=== PATIENT | female | born 1990 | race American Indian/Alaskan Native ===

== ENCOUNTER 2020-09-04 13:04 | Emergency (ER) | payer MEDICAID ==
[2020-09-04 13:24] VITALS: BP 125/61
--- NOTE | 2020-09-04 14:03 | Event Note ---
ED Screening Note ED Screening Note: lmp 02/02 18 weeks preg ob sent her here for migraine headache has had migraines and cordova w and wo preg has had for days saw pcp in office today no focal def ambulatory [facility]h concussion 2014 had stroke w last preg rx none no cig/etoh/drugs ob [facility] no cp no sob bp n in triage This initial assessment/diagnostic orders/clinical plan/treatment(s) is/are subject to change based on patients health status, clinical progression and re- assessment by fellow clinical providers in the ED. Further treatment and workup at subsequent clinical providers discretion. Patient/guardian urged not to elope from the ED as their condition may be serious if not clinically assessed and managed. Initial orders include: labs urinalysis monitor bp
[2020-09-04 14:45] LABS: Hematocrit 34.8 % (30.3-42.9); Hemoglobin 11.7 gm/dl (10.1-14.3); Mean Corpuscular HGB Conc 34 % (30-34); Mean Corpuscular Volume 93 fl (79-97); Platelet Count 213 K/mm3 (140-440); Red Blood Count 3.76 M/mm3 (3.65-5.03); Red Cell Distribution Width 13.3 % (13.2-15.2)
[2020-09-04 15:08] LABS: Alanine Aminotransferase 19 units/L (7-56); Albumin 3.9 g/dL (3.9-5); Blood Urea Nitrogen 6 mg/dL (7-17); Calcium 8.5 mg/dL (8.4-10.2); Hemolysis Index 3
[2020-09-04 15:10] LABS: BUN/Creatinine Ratio 12
[2020-09-04 15:38] LABS: Bilirubin,Urine NEG (Negative); Blood,Urine NEG (Negative); Calcium Oxalate Crystals,Urine 2+; Color,Urine Yellow (Yellow); Hyaline Casts,Urine 2 /LPF; Mucus,Urine 3+ /HPF
[2020-09-04] MEDS ORDERED: ACETAMINOPHEN 325 MG TAB PO ONE (20:42)
[2020-09-04] MEDS ORDERED: METOCLOPRAMIDE 10 MG/2 ML INJ IV ONE (20:42)
[2020-09-04] MEDS ORDERED: diphenhydrAMINE 50 MG/ML VIAL IV ONE (20:42)
[2020-09-04] MEDS ORDERED: SODIUM CHLORIDE 0.9% 1000 ML 1,000 ML IV ONE (20:43)
--- NOTE | 2020-09-04 21:44 | Emergency Department Report ---
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 Patient is currently 18 weeks and was sent by her NEUROSURGEON doctor for evaluation. Patient has a global headache that is also occipital and described as a constant pressure and hear head feels heavy with lifting her head. Patient does have light sensitivity but denies blurred vision or focal weakness.. She denies nausea, vomiting, fever, focal numbnless. Good po. intake but did not have much to eat today due to doctor's visits. Patient apparently had a "stroke" during her 2014 in which she had right sided facial weakness involving the forehead and blurred vision. Visual changes lasted x1 day but facial weakness was persistent for about 1 year before resolving. Patient has been prescribed Tylenol 3 for her headaches in the past but is not currently taking any medication for pain since symptoms onset several days ago. Patient states that this headache today is similar to her previous episodes that she was concerned that she might have another stroke due to persistent pain Allergies/Adverse Reactions: Allergies morphine Allergy (Verified 09/04/20 13:18) Swelling Home Medications: Ambulatory Orders Vit-Fe Fumar-FA [ Vitamin] 1 each PO QDAY #30 tablet 12/04/13 Ibuprofen [Motrin 600 MG tab] 600 mg PO Q6HR #30 tablet 04/06/15 Acetaminophen [Acetaminophen TAB] 1,000 mg PO Q6HR PRN #20 tablet 09/04/20 Acetaminophen/Codeine [Tylenol /Codeine # 3 tab] 1 tab PO Q6H PRN #10 tab 09/04/20 Metoclopramide [Reglan] 10 mg PO TID PRN #20 tab 09/04/20 ED Review of Systems ROS: Stated complaint: HEADACHE;BLURRY VISION Other details as noted in HPI Comment: All other systems reviewed and negative ED Past Medical Hx - Past Medical History Hx Hypertension: No Hx Congestive Heart Failure: No Hx Diabetes: No Hx Deep Vein Thrombosis: No Hx Renal Disease: No Hx Sickle Cell Disease: No Hx Seizures: No Hx Asthma: No Hx COPD: No Hx HIV: No - Surgical History Additional Surgical History: hand surgery s/p staph infection - Social History Smoking Status: Never Smoker - Medications Home Medications: Home Medications Medication Instructions Recorded Confirmed Last Taken Type Vit-Fe Fumar-FA [ 1 each PO QDAY #30 tablet 12/04/13 04/05/15 04/04/15 08:15 Rx Vitamin] 1 Ibuprofen [Motrin 600 MG tab] 600 mg PO Q6HR #30 tablet 04/06/15 Unknown Rx Acetaminophen [Acetaminophen TAB] 1,000 mg PO Q6HR PRN #20 tablet 09/04/20 Unknown Rx Acetaminophen/Codeine [Tylenol 1 tab PO Q6H PRN #10 tab 09/04/20 Unknown Rx /Codeine # 3 tab] Metoclopramide [Reglan] 10 mg PO TID PRN #20 tab 09/04/20 Unknown Rx ED Physical Exam - General Limitations: No Limitations - Other Other exam information: General: No acute distress Head: Atraumatic Eyes: normal appearance, extraocular movements intact, pupils equal reactive to light ENT: Moist mucous membranes Neck: Normal appearance, no midline tenderness, no nuchal rigidity Chest: Clear to auscultation bilaterally CV: Regular rate and rhythm Abdomen: Soft, normal bowel sounds, nontender, nondistended, no rebound or guarding Back: Normal inspection Extremity: Normal inspection, full range of motion Neuro: Alert O x 3, no facial asymmetry, speech clear, no gross motor sensory deficit, [id number] function intact Psych: Appropriate behavior Skin: No rash ED Course Vital Signs 09/04/20 09/04/20 13:22 20:55 Temperature 98.5 F Pulse Rate 95 H Respiratory 18 18 Rate Blood Pressure 125/61 O2 Sat by Pulse 97 Oximetry - Reevaluation(s) Reevaluation #1: 09/04/20 22:30 Headache now 3/10 after receiving Reglan, Benadryl, Tylenol, and 500 mL of normal saline 09/04/20 22:44 I informed patient that her CAT scan results are good normal however, they do not 100% rule out a subarachnoid bleed given that her symptoms have been ongoing for several days. I explained to her that the only way to rule out a subarachnoid bleed is to perform a lumbar puncture. Patient insists that this headache is similar to her previous headache episodes and she feels improvement with ED treatment and does not want a lumbar puncture at this time. Patient also lacks high risk findings of subarachnoid hemorrhage as indicated by the Mcdowell subarachnoid rules for headache evaluation. ED Medical Decision Making - Lab Data Result diagrams: 09/04/20 14:26 09/04/20 14:26 Lab Results 09/04/20 09/04/20 09/04/20 Range/Units 14:26 14:26 14:53 WBC 10.1 (4.5-11.0) K/mm3 RBC 3.76 (3.65-5.03) M/mm3 Hgb 11.7 (10.1-14.3) gm/dl Hct 34.8 (30.3-42.9) % MCV 93 (79-97) fl MCH 31 (28-32) pg MCHC 34 (30-34) % RDW 13.3 (13.2-15.2) % Plt Count 213 (140-440) K/mm3 Sodium 134 L (137-145) mmol/L Potassium 3.5 L (3.6-5.0) mmol/L Chloride 101.7 (98-107) mmol/L Carbon Dioxide 22 (22-30) mmol/L Anion Gap 14 mmol/L BUN 6 L (7-17) mg/dL Creatinine 0.5 L (0.6-1.2) mg/dL Estimated GFR > 60 ml/min BUN/Creatinine Ratio 12 % Glucose 127 H (65-100) mg/dL Calcium 8.5 (8.4-10.2) mg/dL Total Bilirubin 0.20 (0.1-1.2) mg/dL AST 19 (5-40) units/L ALT 19 (7-56) units/L Alkaline Phosphatase 52 (35-129) units/L Total Protein 6.8 (6.3-8.2) g/dL Albumin 3.9 (3.9-5) g/dL Albumin/Globulin Ratio 1.3 % Urine Color Yellow (Yellow) Urine Turbidity Cloudy (Clear) Urine pH 5.0 (5.0-7.0) Ur Specific [place] 1.023 (1.003-1.030) Urine Protein 30 mg/dl (Negative) mg/dL Urine Glucose (UA) Neg (Negative) mg/dL Urine Ketones 20 (Negative) mg/dL Urine Blood Neg (Negative) Urine Nitrite Neg (Negative) Urine Bilirubin Neg (Negative) Urine Urobilinogen 2.0 (<2.0) mg/dL Ur Leukocyte Esterase Sm (Negative) Urine WBC (Auto) 6.0 (0.0-6.0) /HPF Urine RBC (Auto) 4.0 (0.0-6.0) /HPF U Epithel Cells (Auto) 26.0 H (0-13.0) /HPF Calcium Oxalate Crystal 2+ Hyaline Casts 2 /LPF Urine Mucus 3+ /HPF - Radiology Data Radiology results: report reviewed (ct head: naf) - Medical Decision Making 30-year-old female presents to the hospital complaining of "migraine" headache related to . Reports similar headaches in the past with previous pregnancies. CT head unremarkable with with no high risk findings as per Mcdowell subarachnoid hemorrhage rules. Patient declined LP and shows improvement with migraine treatment including Reglan, Benadryl, Tylenol, and normal saline. Patient also received 1 dose of p.o. potassium for mild hypokalemia. Patient will be discharged home on Tylenol plus Reglan as first-line with Tylenol with codeine for refractory pain. Patient instructed to return if symptoms worsen as indicated by discharge instructions Critical Care Time: No Critical care attestation.: If time is entered above; I have spent that time in minutes in the direct care of this critically ill patient, excluding procedure time. ED Disposition Clinical Impression: , Migraine Disposition: DC-01 TO HOME OR SELFCARE Is pt being admited?: No Does the pt Need Aspirin: No Condition: Stable Instructions: Migraine Headache, Second Trimester of Additional Instructions: As informed we are unable to 100% rule out subarachnoid hemorrhage or a bleeding aneurysm without lumbar puncture testing which you have declined today. A missed subarachnoid hemorrhage can lead to significant risk of disability and . Is very important that you return to the ED for reevaluation if your headache worsens or you have new neurologic symptoms. Take the medication as prescribed. Take Tylenol and Reglan first-line for headache. If headache persists you may take Tylenol with codeine however, this dose needs to be taken 6 hours after last Tylenol 1000 mg dose. You can only take 4000 mg of Tylenol/acetaminophen in a 24-hour so use caution while taking both the Tylenol and Tylenol with Codeine as prescribed. Follow-up with your doctor or doctor/clinic provided. Return if symptoms worsen as indicated by your discharge instructions. Prescriptions: Acetaminophen [Acetaminophen TAB] 1,000 mg PO Q6HR PRN #20 tablet PRN Reason: Headache Metoclopramide [Reglan] 10 mg PO TID PRN #20 tab PRN Reason: Headache Acetaminophen/Codeine [Tylenol /Codeine # 3 tab] 1 tab PO Q6H PRN #10 tab PRN Reason: Headache Referrals: JAIRO WINTERS MD [Primary Care Provider] - 3-5 Days TANISHA DORSEY MD [Staff Physician] - 3-5 Days (Neurologist) Time of Disposition: 23:36
--- NOTE | 2020-09-04 22:08 | Cat Scan Report ---
NONENHANCED CT SCAN OF THE HEAD: INDICATION / CLINICAL INFORMATION: 30 years Female; Patient complains of a headache, 18wks . TECHNIQUE: Routine CT head without contrast. All CT scans at this location are performed using CT dos e reduction for ALARA by means of automated exposure control. COMPARISON: None. FINDINGS: BRAIN / INTRACRANIAL CONTENTS: No acute hemorrhage, mass effect, midline shift, hydrocephalus, or acu te, large territorial infarct. No chronic infarct or focal atrophy. Normal brain volume and ventricul ar/sulcal size for age. No significant white matter abnormality. CRANIOCERVICAL JUNCTION: No significant abnormality. ORBITS: No significant abnormality of visualized orbits. SINUSES / MASTOIDS: No significant abnormality of the visualized paranasal sinuses or mastoid air paul ls. ADDITIONAL FINDINGS: None. IMPRESSION: No focal mass, hemorrhage, hydrocephalus, or acute, large territorial infarct. Signer Name: Jarrell Block MD Signed: 09/04/2020 10:03 PM Workstation Name: [id number]
[2020-09-04] MEDS ORDERED: POTASSIUM CHLORIDE ER 20 MEQ TAB PO ONE (23:24)
== END 2020-09-04 23:57 | disposition home or self-care (01) ==
LOC: ED 13:04
DX: O26.892 Other specified pregnancy related conditions, second trimester (principal); G43.909 Migraine, unspecified, not intractable, without status migrainosus; Z79.899 Other long term (current) drug therapy; Z88.6 Allergy status to analgesic agent; Z3A.18 18 weeks gestation of pregnancy
CPT/HCPCS: 36415; 70450; 80053; 81001; 85027; 96361; 96374; 96375; 99284; J1200; J2765; J7030

== ENCOUNTER 2020-11-16 22:16 | Outpatient (CLI) | payer MEDICAID ==
[2020-11-16] MEDS ORDERED: LACTATED RINGERS 1,000 ML IV SCH (22:30)
[2020-11-16 22:57] LABS: Bacteria,Urine 1+ /HPF (Negative); Bilirubin,Urine NEG (Negative); Blood,Urine NEG (Negative); Color,Urine Yellow (Yellow); Mucus,Urine 2+ /HPF
[2020-11-16] MEDS ORDERED: TERBUTALINE 1 MG/1 ML INJ SUB-Q SCH (23:00)
[2020-11-16 23:20] VITALS: BP 117/67
[2020-11-16] MEDS ORDERED: LIDOCAINE-MPF (1%) 10 MG/1 ML VIAL 5 ML INFILTRATI ONE (23:38)
== END 2020-11-17 00:30 | disposition home or self-care (01) ==
LOC: TRG 22:16 → APU 22:17 → TRG 11-17 00:30
PROVIDERS: ATTEND Obstetrics & Gynecology
DX: O26.893 Other specified pregnancy related conditions, third trimester (principal); M54.9 Dorsalgia, unspecified; Z3A.28 28 weeks gestation of pregnancy
CPT/HCPCS: 36415; 59025; 81001; 82731; 87086; 96372; J0696

== ENCOUNTER 2021-01-22 13:28 | Outpatient (CLI) | payer MEDICAID ==
[2021-01-22 14:24] VITALS: BP 101/58
== END 2021-01-22 14:50 | disposition home or self-care (01) ==
LOC: TRG 13:28 → APU 13:29 → TRG 14:50
PROVIDERS: ATTEND Obstetrics & Gynecology
DX: O47.1 False labor at or after 37 completed weeks of gestation (principal); Z3A.38 38 weeks gestation of pregnancy
CPT/HCPCS: 59025

== ENCOUNTER 2021-01-31 12:37 | Inpatient (IN) | payer MEDICAID ==
[2021-01-31] MEDS ORDERED: METHYLERGONOVINE MALEATE 0.2 MG/ML VIAL IM PRN (14:12)
[2021-01-31] MEDS ORDERED: OXYTOCIN 10 UNIT/1 ML INJ IM PRN (14:12)
[2021-01-31] MEDS ORDERED: CARBOPROST TROMETHAMINE 250 MCG/1 ML INJ IM PRN (14:12)
[2021-01-31] MEDS ORDERED: miSOPROStol 200 MCG TAB PR PRN (14:12)
[2021-01-31] MEDS ORDERED: LIDOCAINE (2%) 20 MG/1 ML VIAL 20 ML MDV INFILTRATI ONE (14:12)
[2021-01-31] MEDS ORDERED: MINERAL OIL 30 ML ORAL LIQD PO PRN (14:12)
[2021-01-31] MEDS ORDERED: LOPERAMIDE 2 MG CAP PO PRN (14:12)
[2021-01-31] MEDS ORDERED: AMPICILLIN/NS 2 GM/100 ML 2 GM/100 ML BAG IV ONE ×3 (14:12→19:00)
[2021-01-31] MEDS ORDERED: ePHEDrine SULFATE 50 MG/1 ML INJ IV PRN ×2 (14:12→18:32)
[2021-01-31] MEDS ORDERED: TERBUTALINE 1 MG/1 ML INJ SUB-Q PRN (14:12)
--- NOTE | 2021-01-31 14:18 | History and Physical Report ---
History of Present Illness Date of examination: 01/31/21 Date of admission: 01/31/2021 Chief complaint: Leaking of water from vagina History of present illness: 30 year old female presents with complaint of leaking of clear fluid from vagina since approximately 12:00 today. Patient received care at [facility] and records are available. LMP 02/09/2020. EDC 02/05/2021. 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 labs are as follows: O+, antibody screen negative, rubella immune, RPR nonreactive, HIV negative, hepatitis B surface antigen negative, gonorrhea negative, chlamydia negative, trichomonas negative, AFP negative, 1 hour sugar test 96, GBS positive. Past History Past Medical History: other (obesity, history of depression, migraine headaches, history of head injury, history of bells palsy vs. stroke 2014) Past Surgical History: no surgical history [facility] History: denies: chlamydia, gonorrhea, hepatitis B, hepatitis C, herpes, HIV, syphilis, trichomonas Family/Genetic History: diabetes, hypertension, stroke, cancer, other (asthma) Social history: lives with family - Obstetrical History Expected Date of Delivery: 02/05/21 Actual Gestation: 39 Week(s) 2 Day(s) : 3 Para: 2 Hx # Term Pregnancies: 1 Number of Pregnancies: 1 Spontaneous Abortions: 0 Induced : 0 Number of Living Children: 2 Medications and Allergies Allergies Allergy/AdvReac Type Severity Reaction Status Date / Time morphine Allergy Swelling Verified 09/04/20 13:18 Home Medications Medication Instructions Recorded Confirmed Last Taken Type Vit-Fe Fumar-FA [ 1 each PO QDAY #30 tablet 12/04/13 04/05/15 04/04/15 08:15 Rx Vitamin] 1 Ibuprofen [Motrin 600 MG tab] 600 mg PO Q6HR #30 tablet 04/06/15 Unknown Rx Acetaminophen [Acetaminophen TAB] 1,000 mg PO Q6HR PRN #20 tablet 09/04/20 Unknown Rx Acetaminophen/Codeine [Tylenol 1 tab PO Q6H PRN #10 tab 09/04/20 Unknown Rx /Codeine # 3 tab] Metoclopramide [Reglan] 10 mg PO TID PRN #20 tab 09/04/20 Unknown Rx Active Meds: Active Medications Carboprost Tromethamine (Carboprost Tromethamine 250 Mcg/1 Ml Inj) 250 mcg IM ONCE PRN PRN Reason: Uterine Bleeding Ephedrine Sulfate (Ephedrine Sulfate 50 Mg/1 Ml Inj) 10 mg IV Q2M PRN PRN Reason: Hypotension Oxytocin/Sodium Chloride (Pitocin/Ns 30 Unit/500ml) 30 units in 500 mls @ 2 mls/hr IV TITR GERTRUDE; Protocol Lactated Ringer's (Lactated Ringers) 1,000 mls @ 125 mls/hr IV DIRECT GERTRUDE Oxytocin/Sodium Chloride (Pitocin/Ns 30 Unit/500ml) 30 units in 500 mls @ 40 mls/hr IV TITR GERTRUDE; Protocol Ampicillin Sodium (Ampicillin/Ns 2 Gm/100 Ml) 2 gm in 100 mls @ 100 mls/hr IV ONCE ONE; Protocol Stop: 01/31/21 15:11 Ampicillin Sodium (Ampicillin/Ns 1 Gm/50 Ml) 1 gm in 50 mls @ 100 mls/hr IV Q4H GERTRUDE; Protocol Lidocaine (Lidocaine (2%) 20 Mg/1 Ml Vial 20 Ml Mdv) 20 ml INFILTRATI ONCE ONE Stop: 01/31/21 14:13 Loperamide HCl (Loperamide 2 Mg Cap) 2 mg PO ONCE PRN PRN Reason: give with Hemabate Methylergonovine Maleate (Methylergonovine Maleate 0.2 Mg/Ml Vial) 0.2 mg IM ONCE PRN PRN Reason: Uterine Bleeding Mineral Oil (Mineral Oil 30 Ml Oral Liqd) 30 ml PO QHS PRN PRN Reason: Constipation Misoprostol (Misoprostol 200 Mcg Tab) 800 mcg SC ONCE PRN PRN Reason: Uterine Bleeding Oxytocin (Oxytocin 10 Unit/1 Ml Inj) 10 unit IM ONCE PRN PRN Reason: Uterine Bleeding Terbutaline Sulfate (Terbutaline 1 Mg/1 Ml Inj) 0.25 mg SUB-Q ONCE PRN PRN Reason: Hyperstimulation/Hypertonicity Review of Systems All systems: negative (leaking of clear fluid from vagina) - Vital Signs Vital signs: Vital Signs Pulse Pulse Ox 84 98 01/31/21 13:12 01/31/21 13:12 Temp Pulse Resp BP Pulse Ox 97.6 F 76 20 129/80 98 01/31/21 13:19 01/31/21 14:14 01/31/21 13:19 01/31/21 13:19 01/31/21 14:14 - Physical Exam Abdomen: Positive: normal appearance, soft. Negative: distention, tenderness, guarding, rigidity Genitourinary (Female): Positive: normal external genitalia, normal perenium. Negative: perineal/vulvar lesions Vagina: Positive: other (small amount of watery fluid) Uterus: Positive: enlarged. Negative: tender Anus/Rectum: Positive: normal perianal skin Extremities: Positive: normal - Obstetrical FHR: category 1 Uterine Contraction Monitor Mode: External Cervical Dilatation: 1 (Exam by RN upon arrival) Cervical Effacement Percentage: 50 station: -3 Uterine Contraction Pattern: Irregular Uterine Contraction Intensity: Mild Results Abnormal lab results 01/31/21 Range/Units Unknown Membranes Rupture Positive A (Negative) All other labs normal. Assessment and Plan A: at 39 2/7 weeks gestation. Spontaneous rupture of membranes (PROM). GBS positive. Rectovaginal fistula. Obesity. P: Admit. Continuous EFM. GBS prophylaxis. Augmentation of labor.
[2021-01-31] MEDS ORDERED: OXYTOCIN DRIP 30 UNITS/500 ML BAG IV SCH ×2 (15:00)
[2021-01-31 15:02] LABS: Hematocrit 36.5 % (30.3-42.9); Hemoglobin 12.3 gm/dl (10.1-14.3); Mean Corpuscular HGB Conc 34 % (30-34); Mean Corpuscular Volume 90 fl (79-97); Platelet Count 241 K/mm3 (140-440); Red Blood Count 4.06 M/mm3 (3.65-5.03); Red Cell Distribution Width 14.1 % (13.2-15.2)
--- NOTE | 2021-01-31 15:38 | Ultrasound Report ---
ULTRASOUND OBSTETRIC LIMITED INDICATION / CLINICAL INFORMATION: presentation. Clinical Gestational Age (GA): 39.4 weeks.days COMPARISON: None available. FINDINGS: HEART RATE (beats per minute): 153 PRESENTATION: Cephalic. ADDITIONAL FINDINGS: None. IMPRESSION: 1. Single living intrauterine gestation in cephalic position. Signer Name: Elder Sorenson MD Signed: 01/31/2021 3:33 PM Workstation Name: [id number]
[2021-01-31] MEDS: LACTATED RINGERS 1,000 ML IV SCH (16:59)
[2021-01-31] MEDS ORDERED: NALOXONE 2 MG/2 ML INJ IV PRN (18:32)
--- NOTE | 2021-01-31 18:34 | Anesthesia Day of Surgery ---
Anesthesia Day of Surgery - Day of Surgery Patient Examined: Yes Patient H&P Reviewed: Yes Patient is NPO: Yes
--- NOTE | 2021-01-31 18:36 | Anesthesia Consultation ---
Anesthesia Consult and Med Hx Date of service: 01/31/21 - Airway Anesthetic Teeth Evaluation: Good ROM Head & Neck: Adequate Mental/Hyoid Distance: Adequate Mallampati Class: Class II Intubation Access Assessment: Good - Pre-Operative Health Status ASA Pre-Surgery Classification: ASA2 Proposed Anesthetic Plan: Epidural - Pulmonary Hx Asthma: No COPD: No Hx Pneumonia: No - Cardiovascular System Hx Hypertension: Yes (In 2014) - Central Nervous System Hx Seizures: No Hx Psychiatric Problems: No - Endocrine Hx Renal Disease: No Hx End Stage Renal Disease: No Hx Hypothyroidism: No Hx Hyperthyroidism: No - Hematic Hx Anemia: No Hx Sickle Cell Disease: No - Other Systems Hx Alcohol Use: No - Additional Comments Anesthesia Medical History Comments: Had a prior epidural-didn't work too well
--- NOTE | 2021-01-31 19:08 | Event Note ---
Date: 01/31/21 SVE 3.5/80/-4.
[2021-01-31] MEDS: fentaNYL-BUPIV 2 MCG/ML-0.125% 200 MCG/100 ML BAG EPIDURAL SCH (19:55)
[2021-01-31] MEDS: AMPICILLIN/NS 1 GM/50 ML 1 GM/50 ML BAG IV SCH ×2 (23:10→23:20)
[2021-02-01] MEDS ORDERED: diphenhydrAMINE 50 MG/ML VIAL IV ONE (00:57)
[2021-02-01] MEDS: AMPICILLIN/NS 1 GM/50 ML 1 GM/50 ML BAG IV SCH ×2 (03:29→07:36)
[2021-02-01] MEDS: fentaNYL-BUPIV 2 MCG/ML-0.125% 200 MCG/100 ML BAG EPIDURAL SCH (05:29)
--- NOTE | 2021-02-01 05:45 | Event Note ---
Date: 02/01/21 SVE /-1.
[2021-02-01] MEDS ORDERED: LIDOCAINE (2%) 20 MG/1 ML VIAL 20 ML MDV INFILTRATI ONE (07:24)
[2021-02-01] MEDS: LACTATED RINGERS 1,000 ML IV SCH (07:28)
--- NOTE | 2021-02-01 07:41 | Event Note ---
Date: 02/01/[address] Benedict; care of patient being turned over to Dr. Benedict at 08:00.
--- NOTE | 2021-02-01 07:54 | Progress Note ---
Subjective - Subjective Date of service: 02/01/21 Interval history: no cervical change plan for oxytocin per protocol repair of repair of RV fistuala Category 1 tracing Mary Benedict MD Objective - Vital Signs Vital Signs: Vital Signs - 12hr 01/31/21 01/31/21 01/31/21 19:54 19:59 20:04 Temperature Pulse Rate 68 77 65 Respiratory Rate Blood Pressure O2 Sat by Pulse 98 99 98 Oximetry 01/31/21 01/31/21 01/31/21 20:08 20:09 20:14 Temperature 97.9 F Pulse Rate 74 67 Respiratory 20 Rate Blood Pressure 117/58 O2 Sat by Pulse 98 99 100 Oximetry 01/31/21 01/31/21 01/31/21 20:19 20:24 20:29 Temperature Pulse Rate 69 72 68 Respiratory Rate Blood Pressure O2 Sat by Pulse 99 99 99 Oximetry 01/31/21 01/31/21 01/31/21 20:34 20:39 20:40 Temperature Pulse Rate 70 68 73 Respiratory Rate Blood Pressure 113/56 O2 Sat by Pulse 99 99 Oximetry 01/31/21 01/31/21 01/31/21 20:44 20:49 20:54 Temperature Pulse Rate 65 82 68 Respiratory Rate Blood Pressure O2 Sat by Pulse 99 99 99 Oximetry 01/31/21 01/31/21 01/31/21 20:59 21:04 21:09 Temperature Pulse Rate 85 65 74 Respiratory Rate Blood Pressure O2 Sat by Pulse 98 99 99 Oximetry 01/31/21 01/31/21 01/31/21 21:10 21:14 21:19 Temperature Pulse Rate 76 69 80 Respiratory Rate Blood Pressure 111/55 O2 Sat by Pulse 99 99 Oximetry 01/31/21 01/31/21 01/31/21 21:24 21:29 21:34 Temperature Pulse Rate 70 71 72 Respiratory Rate Blood Pressure O2 Sat by Pulse 98 99 100 Oximetry 01/31/21 01/31/21 01/31/21 21:39 21:44 21:49 Temperature Pulse Rate 69 72 70 Respiratory Rate Blood Pressure 118/66 O2 Sat by Pulse 100 100 100 Oximetry 01/31/21 01/31/21 01/31/21 21:54 21:59 22:04 Temperature Pulse Rate 74 71 72 Respiratory Rate Blood Pressure O2 Sat by Pulse 100 100 100 Oximetry 01/31/21 01/31/21 01/31/21 22:09 22:14 22:19 Temperature Pulse Rate 65 69 66 Respiratory Rate Blood Pressure 126/56 O2 Sat by Pulse 100 100 100 Oximetry 01/31/21 01/31/21 01/31/21 22:24 22:29 22:34 Temperature Pulse Rate 68 74 76 Respiratory Rate Blood Pressure O2 Sat by Pulse 100 99 99 Oximetry 01/31/21 01/31/21 01/31/21 22:39 22:44 22:49 Temperature Pulse Rate 69 93 H 67 Respiratory Rate Blood Pressure 118/66 O2 Sat by Pulse 99 99 99 Oximetry 01/31/21 01/31/21 01/31/21 22:54 22:59 23:04 Temperature Pulse Rate 93 H 67 86 Respiratory Rate Blood Pressure O2 Sat by Pulse 99 99 100 Oximetry 01/31/21 01/31/21 01/31/21 23:09 23:14 23:19 Temperature Pulse Rate 76 74 80 Respiratory Rate Blood Pressure 106/55 O2 Sat by Pulse 99 100 100 Oximetry 01/31/21 01/31/21 01/31/21 23:24 23:29 23:34 Temperature Pulse Rate 82 68 85 Respiratory Rate Blood Pressure O2 Sat by Pulse 99 100 100 Oximetry 01/31/21 01/31/21 01/31/21 23:39 23:44 23:49 Temperature Pulse Rate 68 71 74 Respiratory Rate Blood Pressure O2 Sat by Pulse 100 99 99 Oximetry 01/31/21 01/31/21 02/01/21 23:54 23:59 00:04 Temperature Pulse Rate 66 73 65 Respiratory Rate Blood Pressure 113/71 O2 Sat by Pulse 99 99 99 Oximetry 02/01/21 02/01/21 02/01/21 00:09 00:14 00:19 Temperature Pulse Rate 65 66 63 Respiratory Rate Blood Pressure 110/69 O2 Sat by Pulse 99 99 99 Oximetry 02/01/21 02/01/21 02/01/21 00:24 00:29 00:34 Temperature Pulse Rate 66 65 62 Respiratory Rate Blood Pressure O2 Sat by Pulse 99 100 100 Oximetry 02/01/21 02/01/21 02/01/21 00:39 00:40 00:44 Temperature Pulse Rate 72 67 75 Respiratory Rate Blood Pressure 125/81 O2 Sat by Pulse 99 100 Oximetry 02/01/21 02/01/21 02/01/21 00:49 00:54 00:56 Temperature 97.9 F Pulse Rate 73 69 Respiratory Rate Blood Pressure O2 Sat by Pulse 99 100 Oximetry 02/01/21 02/01/21 02/01/21 00:59 01:04 01:09 Temperature Pulse Rate 71 69 71 Respiratory Rate Blood Pressure O2 Sat by Pulse 100 99 100 Oximetry 02/01/21 02/01/21 02/01/21 01:10 01:14 01:19 Temperature Pulse Rate 69 76 70 Respiratory Rate Blood Pressure 113/58 O2 Sat by Pulse 100 100 Oximetry 02/01/21 02/01/21 02/01/21 01:24 01:29 01:34 Temperature Pulse Rate 67 67 68 Respiratory Rate Blood Pressure O2 Sat by Pulse 100 100 100 Oximetry 02/01/21 02/01/21 02/01/21 01:39 01:44 01:49 Temperature Pulse Rate 69 78 71 Respiratory Rate Blood Pressure 126/77 O2 Sat by Pulse 100 99 99 Oximetry 02/01/21 02/01/21 02/01/21 01:54 01:59 02:04 Temperature Pulse Rate 79 70 73 Respiratory Rate Blood Pressure O2 Sat by Pulse 98 99 99 Oximetry 02/01/21 02/01/21 02/01/21 02:09 02:14 02:19 Temperature Pulse Rate 77 78 80 Respiratory Rate Blood Pressure 113/68 O2 Sat by Pulse 98 99 99 Oximetry 02/01/21 02/01/21 02/01/21 02:24 02:29 02:34 Temperature Pulse Rate 75 73 81 Respiratory Rate Blood Pressure O2 Sat by Pulse 99 99 98 Oximetry 02/01/21 02/01/21 02/01/21 02:39 02:44 02:49 Temperature Pulse Rate 89 74 78 Respiratory Rate Blood Pressure 119/70 O2 Sat by Pulse 98 99 98 Oximetry 02/01/21 02/01/21 02/01/21 02:54 02:59 03:04 Temperature Pulse Rate 75 74 84 Respiratory Rate Blood Pressure O2 Sat by Pulse 98 98 98 Oximetry 02/01/21 02/01/21 02/01/21 03:09 03:14 03:19 Temperature Pulse Rate 78 84 77 Respiratory Rate Blood Pressure 124/59 O2 Sat by Pulse 98 99 99 Oximetry 02/01/21 02/01/21 02/01/21 03:40 04:09 04:41 Temperature Pulse Rate 72 78 86 Respiratory Rate Blood Pressure 109/62 109/61 122/67 O2 Sat by Pulse Oximetry 02/01/21 02/01/21 02/01/21 05:09 05:40 06:06 Temperature Pulse Rate 91 H 93 H Respiratory Rate Blood Pressure 109/75 139/88 O2 Sat by Pulse 78 L Oximetry 02/01/21 02/01/21 02/01/21 06:07 06:12 06:17 Temperature Pulse Rate 99 H 85 86 Respiratory Rate Blood Pressure 147/91 O2 Sat by Pulse 100 100 100 Oximetry 02/01/21 02/01/21 02/01/21 06:22 06:27 06:32 Temperature Pulse Rate 76 75 78 Respiratory Rate Blood Pressure O2 Sat by Pulse 100 100 100 Oximetry 02/01/21 02/01/21 02/01/21 06:37 06:39 06:42 Temperature Pulse Rate 75 71 85 Respiratory Rate Blood Pressure 121/67 O2 Sat by Pulse 100 100 Oximetry 02/01/21 02/01/21 02/01/21 06:47 06:52 06:53 Temperature 98.5 F Pulse Rate 85 78 Respiratory Rate Blood Pressure O2 Sat by Pulse 100 100 Oximetry 02/01/21 02/01/21 02/01/21 06:57 07:02 07:07 Temperature Pulse Rate 76 85 86 Respiratory Rate Blood Pressure O2 Sat by Pulse 100 100 100 Oximetry 02/01/21 02/01/21 02/01/21 07:09 07:12 07:17 Temperature Pulse Rate 76 85 79 Respiratory Rate Blood Pressure 125/73 O2 Sat by Pulse 100 100 Oximetry 02/01/21 02/01/21 02/01/21 07:22 07:27 07:32 Temperature Pulse Rate 82 86 86 Respiratory Rate Blood Pressure O2 Sat by Pulse 100 100 97 Oximetry 02/01/21 02/01/21 02/01/21 07:35 07:36 07:37 Temperature 98.7 F Pulse Rate 81 85 Respiratory Rate Blood Pressure 112/56 O2 Sat by Pulse 98 Oximetry 02/01/21 02/01/21 02/01/21 07:39 07:42 07:47 Temperature Pulse Rate 92 H 83 87 Respiratory Rate Blood Pressure 126/70 O2 Sat by Pulse 97 96 Oximetry - Labs Labs: Abnormal Labs 01/31/21 01/31/21 14:00 Unknown WBC 11.2 H Membranes Rupture Positive A Laboratory Results - last 24 hr 01/31/21 01/31/21 01/31/21 14:00 14:00 14:00 WBC 11.2 H RBC 4.06 Hgb 12.3 Hct 36.5 MCV 90 MCH 30 MCHC 34 RDW 14.1 Plt Count 241 Membranes Rupture Syphilis IgG Antibody Nonreactive Blood Type O POSITIVE Antibody Screen Negative 01/31/21 Unknown WBC RBC Hgb Hct MCV MCH MCHC RDW Plt Count Membranes Rupture Positive A Syphilis IgG Antibody Blood Type Antibody Screen
[2021-02-01] MEDS ORDERED: IBUPROFEN 600 MG TAB PO SCH (12:00)
[2021-02-01] MEDS ORDERED: IBUPROFEN 800 MG TAB ONE (12:48)
[2021-02-01] MEDS ORDERED: PROMETHAZINE 25 MG TAB PO PRN ×2 (13:08→15:44)
[2021-02-01] MEDS ORDERED: MAGNESIUM HYDROXIDE (MOM) ORAL LIQD UDC PO PRN ×2 (13:08→15:44)
[2021-02-01] MEDS ORDERED: diphenhydrAMINE 25 MG CAP PO PRN ×2 (13:08→15:44)
[2021-02-01] MEDS ORDERED: ONDANSETRON 4 MG/2 ML INJ IV PRN ×2 (13:08→15:44)
[2021-02-01] MEDS ORDERED: PROMETHAZINE 25 MG RECT SUPP PR PRN ×2 (13:08→15:44)
[2021-02-01] MEDS ORDERED: LANOLIN/ZINC/DIMETHICONE (LANSINOH) 7 GM TP PRN ×2 (13:08→15:44)
--- NOTE | 2021-02-01 13:25 | Procedure Note ---
OB Delivery Note - Delivery Date of Delivery: 02/01/21 Surgeon: BLAKE GALEAS - Vaginal Delivery position: OA Intrapartum events: prolonged active phase, prolonged 2nd stage>2.5hr Delivery augmentation: pitocin Delivery monitor: external FHT, external uterine Route of delivery: vacuum extraction Indicators for instrumentation: maternal exhaustion Delivery placenta: spontaneous Delivery cord: 3 umbilical vessels Episiotomy: midline (repir of old RV fistula at delibery) Delivery repair: chromic Anesthesia: local, epidural Delivery comments: Patient delivered a viable male via vacuum-assisted vaginal delivery over a midline episiotomy with weight 2688gms and 8/9. Vacuum applied x2 to a maximum of 550 mmHg with no excess traction. Vacuum applied for maternal exhaustion. Position YANICK, no nuchal cord. Spontaneous cry at delivery. Delivery of the anterior shoulder atraumatic, remainder of delivery uncomplicated. Cord clamped cut and baby handed to waiting [facility] team. Spontaneous delivery of an intact placenta with three-vessel cord. Midline episiotomy and fold fourth degree rectovaginal fistula repaired with 2-0 chromic in the appropriate fashion. Rectum confirmed patent. Firm fundus, EBL pending QBL weight. All sponge needle and instrument counts correct x2. Mom and baby stable to . Mary Galeas MD
--- NOTE | 2021-02-01 14:35 | Post Anesthesia Evaluation ---
- Post Anesthesia Evaluation Patient Participated: Yes Airway Patent: Yes Stable Respiratory Function: Yes Nausea/Vomiting: No Temp > 96.8F: Yes Pain Manageable: Yes Adequeate Hydration: Yes Anesthesia Complications: No Block Receding Appropriately: Yes Patient on Ventilator: No
--- NOTE | 2021-02-01 15:25 | Event Note ---
Date: 02/01/21 I was called for late PP hemorrhage pt received methergine and cytotec and atony resolved total EBL ~400ml after delivery AAOx3 hemodynamically stable Check H/H in 6 hours Maternal status reassuring at bedside Mary Benedict MD
[2021-02-01] MEDS ORDERED: WITCH HAZEL/ GLYCERIN PAD TP PRN (15:44)
--- NOTE | 2021-02-01 15:48 | Procedure Note ---
OB Delivery Note - Delivery Date of Delivery: 02/01/21 Surgeon: BLAKE GALEAS - Vaginal Delivery position: OA Intrapartum events: none Delivery monitor: external FHT, external uterine Route of delivery: Delivery placenta: spontaneous Delivery cord: 3 umbilical vessels Episiotomy: midline Delivery laceration: 4th degree Delivery repair: vicryl Anesthesia: local
[2021-02-01] MEDS: WITCH HAZEL/ GLYCERIN PAD TP PRN (15:58)
[2021-02-01] MEDS: IBUPROFEN 600 MG TAB PO SCH ×2 (16:00→21:38)
[2021-02-01] MEDS: ACETAMINOPHEN 325 MG TAB PO PRN (18:15)
[2021-02-01] MEDS ORDERED: SODIUM CHLORIDE 0.9% 500 ML 500 ML IV NR (19:28)
[2021-02-02 00:18] LABS: Hematocrit 31.2 % (30.3-42.9); Hemoglobin 10.6 gm/dl (10.1-14.3)
[2021-02-02] MEDS: IBUPROFEN 600 MG TAB PO SCH ×3 (05:46→18:01)
[2021-02-02] MEDS: ACETAMINOPHEN 325 MG TAB PO PRN (10:44)
--- NOTE | 2021-02-02 11:19 | Progress Note ---
Assessment and Plan A: day 1 S/P VAVD. Poor pain control. Anemia. P: Will order Bethany for pain; consulted with MD and MD in agreement. Ambulation encouraged. Oral iron supplementation. Subjective - Subjective Date of service: 02/02/21 Principal diagnosis: day 1 S/P VAVD Interval history: Requests stronger pain medication; states Motrin is not relieving pain. States she has taken Bethany in the past without reaction. Patient reports: appetite normal, voiding normally, flatus, pain poorly controlled, ambulating normally, no dizzy ambulation, no nauseated Gaylord: doing well Objective - Vital Signs Latest vital signs: Vital Signs Temp Pulse Resp BP BP Pulse Ox 02/02/21 08:11 97.8 F 71 18 122/74 98 02/02/21 05:46 20 02/02/21 01:14 98.3 F 66 16 121/75 99 02/01/21 21:38 20 02/01/21 19:57 98.4 F 73 18 128/83 96 02/01/21 18:15 18 02/01/21 13:58 97.9 F 77 18 135/89 99 02/01/21 13:41 82 140/95 02/01/21 13:34 86 149/87 02/01/21 13:19 91 H 136/88 02/01/21 13:04 86 139/75 02/01/21 12:49 98 H 143/68 02/01/21 12:39 103 H 148/86 02/01/21 12:32 111 H 140/84 02/01/21 11:39 114 H 144/94 Intake and Output 02/01/21 02/02/21 02/02/21 23:59 07:59 15:59 Intake Total 600 Balance 600 Intake: Intake, Free Water 600 Other: # Voids Void 1 - Exam Cardiovascular: Present: Regular rate Lungs: Present: Clear to auscultation Abdomen: Present: normal appearance, soft, normal bowel sounds. Absent: distention, tenderness, guarding, rigidity Uterus: Present: normal, firm, fundal height below umbilicus. Absent: bogginess, tenderness Extremities: Absent: tenderness - Labs Labs: Abnormal lab results 01/31/21 Range/Units 14:00 Crossmatch See Detail
[2021-02-02] MEDS: FERROUS SULFATE 325 MG TAB PO SCH (12:22)
[2021-02-02] MEDS: HYDROcodone/ACETAMINOPHEN 5-325 MG TAB PO PRN ×2 (13:56→23:57)
[2021-02-03] MEDS: WITCH HAZEL/ GLYCERIN PAD TP PRN (06:10)
[2021-02-03] MEDS: HYDROcodone/ACETAMINOPHEN 5-325 MG TAB PO PRN (06:10)
--- NOTE | 2021-02-03 07:10 | Progress Note ---
Assessment and Plan A: day 2 S/P VAVD. Anemia. P: Discharge patient home today. Discussed with patient discharge instructions and warning signs. Advised patient to continue taking her vitamins and iron supplements. Advised patient to avoid intercourse, lifting, housework, tub baths. Advised patient to follow up at [facility] in 2 weeks. Patient voiced understanding of all instructions. Subjective - Subjective Date of service: 02/03/21 Principal diagnosis: day 2 S/P VAVD Interval history: Patient is doing well; desires discharge home today. Patient reports: appetite normal, voiding normally, pain well controlled, flatus, ambulating normally, no dizzy ambulation, no nauseated : doing well Objective - Vital Signs Latest vital signs: Vital Signs Temp Pulse Resp BP BP Pulse Ox 02/03/21 06:10 12 02/03/21 00:00 98.6 F 66 16 105/77 02/02/21 23:57 12 02/02/21 16:07 98.0 F 65 19 129/80 99 02/02/21 12:08 98.0 F 66 18 129/81 98 02/02/21 08:11 97.8 F 71 18 122/74 98 Intake and Output 02/02/21 02/02/21 02/03/21 15:59 23:59 07:59 Intake Total 300 Balance 300 Intake: Intake, Free Water 300 Other: # Voids Void 1 - Exam Cardiovascular: Present: Regular rate Lungs: Present: Clear to auscultation Abdomen: Present: normal appearance, soft. Absent: distention, tenderness, guarding, rigidity Uterus: Present: normal, firm, fundal height below umbilicus. Absent: bogginess, tenderness Extremities: Present: normal. Absent: tenderness - Labs Labs: Abnormal lab results 01/31/21 Range/Units 14:00 Crossmatch See Detail
--- NOTE | 2021-02-03 07:12 | Discharge Summary ---
Providers - Providers Date of Admission: 01/31/21 12:57 Date of discharge: 02/03/21 Attending physician: BLAKE GALEAS MD Primary care physician: BLAKE GALEAS MD Hospitalization Reason for admission: rupture of membranes Delivery: Episiotomy: midline complications: none Discharge diagnosis: IUP at term delivered baby: male Pertinent studies: Labs Hospital course: Stable hospital course. Condition at discharge: Good Disposition: DC-01 TO HOME OR SELFCARE - Discharge Diagnoses (1) Term delivered Status: Acute (2) Anemia Status: Acute Plan - Provider Discharge Summary Activity: routine, no sex for 6 weeks, no heavy lifting 4 weeks, no strenuous exercise Diet: routine Instructions: routine Additional instructions: Continue taking your vitamins and iron supplements at home. Follow up at [facility] in 2 weeks. Call your doctor immediately for: * Fever > 100.5 * Heavy vaginal bleeding ( >1 pad per hour) * Severe persistent headache * Shortness of breath * Reddened, hot, painful area to leg or breast - Follow up plan Follow up: BLAKE GALEAS MD [Primary Care Provider] - 14 Days
[2021-02-03 09:01] LABS: Basophils % (Auto) 0.2 % (0.0-1.8); Eosinophils # (Auto) 0.1 K/mm3 (0.0-0.4); Eosinophils % (Auto) 1.2 % (0.0-4.3); Hematocrit 27.5 % (30.3-42.9); Hemoglobin 9.4 gm/dl (10.1-14.3); Lymphocytes # (Auto) 3.5 K/mm3 (1.2-5.4); Lymphocytes % (Auto) 37.7 % (13.4-35.0); Mean Corpuscular HGB Conc 34 % (30-34); Mean Corpuscular Volume 90 fl (79-97); Monocytes # (Auto) 0.5 K/mm3 (0.0-0.8); Monocytes % (Auto) 5.6 % (0.0-7.3); Platelet Count 206 K/mm3 (140-440); Red Blood Count 3.04 M/mm3 (3.65-5.03); Red Cell Distribution Width 14.4 % (13.2-15.2)
[2021-02-03] MEDS: FERROUS SULFATE 325 MG TAB PO SCH (10:05)
[2021-02-03] MEDS: IBUPROFEN 600 MG TAB PO SCH ×2 (10:06→13:35)
[2021-02-03 17:11] VITALS: BP 118/71
== END 2021-02-03 16:20 | disposition home or self-care (01) | DRG 775 ==
LOC: LD 12:37 → TRG 12:37 → APU 12:38 → TRG 12:57 → LD 12:57 → OB 02-01 14:00
PROVIDERS: ADMIT Obstetrics & Gynecology; ATTEND Obstetrics & Gynecology
PROC: 3E0R3BZ Introduction of Anesthetic Agent into Spinal Canal, Percutaneous Approach (ICD-10-PCS; principal; 2021-01-31)
PROC: 10D07Z6 Extraction of Products of Conception, Vacuum, Via Natural or Artificial Opening (ICD-10-PCS; 2021-02-01)
PROC: 0DQP0ZZ Repair Rectum, Open Approach (ICD-10-PCS; 2021-02-01)
PROC: 00HU33Z Insertion of Infusion Device into Spinal Canal, Percutaneous Approach (ICD-10-PCS; 2021-02-01)
PROC: 0W8NXZZ Division of Female Perineum, External Approach (ICD-10-PCS; 2021-02-01)
PROC: 0UQG7ZZ Repair Vagina, Via Natural or Artificial Opening (ICD-10-PCS; 2021-02-01)
DX: O99.214 Obesity complicating childbirth (principal); Z20.822 Contact with and (suspected) exposure to COVID-19; O99.354 Diseases of the nervous system complicating childbirth; O99.824 Streptococcus B carrier state complicating childbirth; N82.3 Fistula of vagina to large intestine; O75.89 Other specified complications of labor and delivery; O90.81 Anemia of the puerperium; O70.3 Fourth degree perineal laceration during delivery; Z83.3 Family history of diabetes mellitus; Z3A.39 39 weeks gestation of pregnancy; Z37.0 Single live birth; Z82.3 Family history of stroke; Z80.9 Family history of malignant neoplasm, unspecified; Z82.49 Family history of ischemic heart disease and other diseases of the circulatory system; Z88.5 Allergy status to narcotic agent
CPT/HCPCS: 36415; 76815; 84112; 85014; 85018; 85025; 85027; 86592; 86850; 86900; 86901; 86920; 96360; 96365; 96366; G0378; A6250; J0290; J1200; J2210; J2590; J7120; U0003

== ENCOUNTER 2021-09-19 09:12 | Day surgery (SDC) | payer MEDICAID ==
[~2021-09-19 09:12] MED LIST: ACETAMINOPHEN 500 MG TAB PO SCH; CELECOXIB 200 MG CAP PO NR; GABAPENTIN 300 MG CAP PO NR; LACTATED RINGERS 1,000 ML IV SCH; MIDAZOLAM 2 MG/2 ML INJ IV NR; SCOPOLAMINE TRANSDERMAL PATCH 72 HR TD NR
[2021-09-19] MEDS ORDERED: oxyCODONE /ACETAMINOPHEN 5-325MG TAB PO PRN (09:52)
[2021-09-19] MEDS ORDERED: HYDROmorphone 1 MG/1 ML INJ IV PRN (09:52)
[2021-09-19] MEDS ORDERED: ONDANSETRON 4 MG/2 ML INJ IV PRN (09:52)
--- NOTE | 2021-09-19 09:52 | Anesthesia Consultation ---
Anesthesia Consult and Med Hx Date of service: 09/19/21 - Airway Anesthetic Teeth Evaluation: Good ROM Head & Neck: Adequate Mental/Hyoid Distance: Adequate Mallampati Class: Class I Intubation Access Assessment: Good - Pre-Operative Health Status ASA Pre-Surgery Classification: ASA1 Proposed Anesthetic Plan: General - Pulmonary Hx Smoking: No Hx Respiratory Symptoms: No - Cardiovascular System Hx Hypertension: No - Central Nervous System CVA: No - Endocrine Hx Renal Disease: No Hx Liver Disease: No Hx Insulin Dependent Diabetes: No Hx Non-Insulin Dependent Diabetes: No Hx Thyroid Disease: No - Other Systems Hx Obesity: Yes (BMI 32) - Additional Comments Anesthesia Medical History Comments: No hx anesthetic complications.
--- NOTE | 2021-09-19 09:52 | Anesthesia Day of Surgery ---
Anesthesia Day of Surgery - Day of Surgery Patient Examined: Yes Patient H&P Reviewed: Yes Patient is NPO: Yes
[2021-09-19] MEDS ORDERED: LIDOCAINE MPF (2%) 20 MG/1 ML VIAL 5 ML ONE (10:26)
[2021-09-19] MEDS ORDERED: KETOROLAC 30 MG/1 ML INJ ONE (10:26)
[2021-09-19] MEDS ORDERED: ROCURONIUM 50 MG/5 ML INJ IV ONE (10:26)
[2021-09-19] MEDS ORDERED: ONDANSETRON 4 MG/2 ML INJ ONE (10:26)
[2021-09-19] MEDS ORDERED: MIDAZOLAM 2 MG/2 ML INJ ONE (10:27)
[2021-09-19] MEDS ORDERED: fentaNYL 100 MCG/2 ML INJ ONE (10:27)
[2021-09-19] MEDS ORDERED: KETAMINE/STERILE WATER 50 MG/ML SYRINGE ONE (10:27)
[2021-09-19] MEDS ORDERED: propofoL 200 MG/20 ML VIAL IV ONE (10:27)
[2021-09-19] MEDS ORDERED: BUPIVACAINE/PF (0.5%) 5 MG/1 ML 30 ML VIAL INFILTRATI ONE (10:27)
[2021-09-19] MEDS ORDERED: SODIUM CHLORIDE 0.9% IRR 1,500 ML BOTTLE IR ONE (11:10)
[2021-09-19] MEDS ORDERED: HYDROmorphone 1 MG/1 ML INJ ONE (11:53)
[2021-09-19] MEDS ORDERED: GLYCOPYRROLATE 0.4 MG/2 ML INJ ONE (12:17)
--- NOTE | 2021-09-19 14:17 | Post Anesthesia Evaluation ---
- Post Anesthesia Evaluation Patient Participated: Yes Airway Patent: Yes Stable Respiratory Function: Yes Nausea/Vomiting: No Temp > 96.8F: Yes Pain Manageable: Yes Adequeate Hydration: Yes Anesthesia Complications: No
[2021-09-19 16:32] VITALS: BP 118/67
== END 2021-09-19 15:30 | disposition home or self-care (01) ==
LOC: OR 09:12
PROVIDERS: ATTEND Obstetrics & Gynecology
DX: Z30.2 Encounter for sterilization (principal); N82.3 Fistula of vagina to large intestine; D64.9 Anemia, unspecified; E66.9 Obesity, unspecified; Z80.8 Family history of malignant neoplasm of other organs or systems; Z79.899 Other long term (current) drug therapy; Z68.32 Body mass index [BMI] 32.0-32.9, adult; Z82.49 Family history of ischemic heart disease and other diseases of the circulatory system
CPT/HCPCS: 57300; 58670; 81025; J1170; J1815; J1885; J2250; J2405; J2704; J3010; J3490; J7120